=== PATIENT | female | born 1985 | race Caucasian/White ===

== ENCOUNTER 2018-12-01 09:02 | Emergency (ER) | payer OTHER ==
[~2018-12-01] VITALS: Ht 160 cm; Wt 59.0 kg
[~2018-12-01 09:02] MED LIST: CLARITIN5 MG PO; DIPH50 PO; ESCI10 PO; METR500 PO; Multiple Vitam1 EAC1 PO; PERM5TC TOP
[2018-12-01] MEDS ORDERED: HYDR1TAB94 PO (10:43)
[2018-12-01] MEDS ORDERED: IBUP800 PO (10:43)
== END 2018-12-01 10:53 | disposition home or self-care (01) ==
LOC: ER 09:02
DX: S20.212A Contusion of left front wall of thorax, initial encounter (principal); Y04.8XXA Assault by other bodily force, initial encounter; Z88.5 Allergy status to narcotic agent; F17.200 Nicotine dependence, unspecified, uncomplicated
CPT/HCPCS: 71101; 99283-25

== ENCOUNTER 2020-05-25 02:04 | Emergency (ER) | payer OTHER ==
[~2020-05-25] VITALS: Ht 154.9 cm; Wt 54.4 kg
[~2020-05-25 02:04] MED LIST changes: +HYDR1TAB94 PO; +IBUP800 PO
[2020-05-25] MEDS ORDERED: HYDR1TAB94 PO (02:53)
== END 2020-05-25 02:58 | disposition home or self-care (01) ==
LOC: ER 02:04
DX: S62.326A Displaced fracture of shaft of fifth metacarpal bone, right hand, initial encounter for closed fracture (principal); F17.210 Nicotine dependence, cigarettes, uncomplicated; Z23 Encounter for immunization; Z88.5 Allergy status to narcotic agent; W22.8XXA Striking against or struck by other objects, initial encounter
CPT/HCPCS: 29125; 73130; 90471; 99283-25; A9270

== ENCOUNTER 2022-05-04 14:31 | Emergency (ER) | payer OTHER ==
[~2022-05-04] VITALS: Ht 162.6 cm; Wt 49.9 kg
[~2022-05-04 14:31] MED LIST changes: +IBUP400 PO
[2022-05-04] MEDS ORDERED: Norco 5-325 Ta1 EACH PO (17:10)
== END 2022-05-04 18:49 | disposition home or self-care (01) ==
LOC: ER 14:31
DX: S27.0XXA Traumatic pneumothorax, initial encounter (principal); S22.32XA Fracture of one rib, left side, initial encounter for closed fracture; W19.XXXA Unspecified fall, initial encounter; F17.210 Nicotine dependence, cigarettes, uncomplicated; Z88.5 Allergy status to narcotic agent
CPT/HCPCS: 71045

== ENCOUNTER 2022-11-12 00:18 | Observation (INO) | payer OTHER ==
[~2022-11-12] VITALS: Ht 162.6 cm; Wt 55.6 kg
[~2022-11-12 00:18] MED LIST changes: +Norco 5-325 Ta1 EACH PO
[2022-11-12 01:44] LABS: BASOPHILS ABSOLUTE AUTO 0.04 K/mm3 (0.00-0.23); BASOPHILS PERCENT AUTO 0 % (0-2); EOSINOPHILS ABSOLUTE AUTO 0.01 K/mm3 (0.00-0.68); EOSINOPHILS PERCENT AUTO 0 % (0-6); Hematocrit 37.7 % (33.0-51.0); Hemoglobin 13.1 g/dL (11.5-16.0); IMMATURE GRAN ABSOLUTE AUTO 0.21 K/mm3 (0.00-0.10); IMMATURE GRAN PERCENT AUTO 1 % (0-1); LYMPHOCYTES ABSOLUTE AUTO 2.08 K/mm3 (0.84-5.20); LYMPHOCYTES PERCENT AUTO 10 % (21-46); MONOCYTES ABSOLUTE AUTO 2.95 K/mm3 (0.16-1.47); MONOCYTES PERCENT AUTO 14 % (4-13); Mean Corpuscular HGB 30.6 pg (26.0-34.0); Mean Corpuscular HGB Conc 34.7 g/dL (31.5-36.5); Mean Corpuscular Volume 88 fL (80-100); Mean Platelet Volume 9.8 fL (9.1-12.4); NEUTROPHILS ABSOLUTE AUTO 16.53 K/mm3 (1.96-9.15); NEUTROPHILS PERCENT AUTO 76 % (41-73); Platelet Count 296 K/mm3 (150-400); RDW Coefficient Variation 12.1 % (11.7-14.2); RDW Standard Deviation 38.8 fL (35.1-46.3); Red Blood Cell Count 4.28 M/mm3 (3.80-5.20); White Blood Cell Count 21.82 K/mm3 (4.00-11.30)
[2022-11-12 01:53] LABS: Source, Urine Clean Catch
[2022-11-12 01:56] LABS: Bilirubin, Urine Neg (Neg); Blood, Urine 1+ (Neg); Glucose Qualitative, Urine Neg (Neg); Ketones, Urine Neg (Neg); Leukocyte Esterase, Urine 1+ (Neg); Nitrite, Urine Neg (Neg); Protein, Urine Neg (Neg); Specific Gravity, Urine 1.005 (1.003-1.022); Urobilinogen, Urine NORM (Normal)
[2022-11-12 02:01] LABS: Albumin, Blood 2.9 g/dL (3.4-5.0); Albumin/Globulin Ratio 0.7 (0.8-1.8); Bilirubin, Total 0.5 mg/dL (0.1-1.0); Bun/Creatinine Ratio 13.6 (12.0-20.0); Calcium, Blood 8.3 mg/dL (8.5-10.1); Creatinine, Blood 0.59 mg/dL (0.40-1.00); Globulin, Blood 3.9 g/dL (2.2-4.0); Magnesium, Blood 1.9 mg/dL (1.6-2.4); Potassium, Blood 3.2 mmol/L (3.5-5.5); Total Protein, Blood 6.8 g/dL (6.4-8.2)
[2022-11-12 02:04] LABS: Appearance, Urine Clear (Clear); Bacteria Few /hpf; Color, Urine Yellow (P-Yellow); Red Blood Cells, Urine 0-2 /hpf (0-2); Squamous Epithelial Cells Not Seen /hpf (Few)
[2022-11-12 04:58] VITALS: BP 98/60
--- NOTE | 2022-11-12 07:36 | NUR ---
430 ASSUMED CARE OF PT FROM ER, PT C/O MINIMAL PAIN TO ABD RIGHT. BOY FRIEND AT BEDSIDE. PT LAYING COMFORTABLY IN BED. AWAITING FOR NEW ORDERS FROM DOC. IV POTASSIUM ORDERD BUT RATE HAD TO BE DECREASED DO TO PAIN AT IV SITE. CHANGE IN RATE HELPED TO DECREASE PAIN. REPORT GIVEN
[2022-11-12 07:57] VITALS: BP 98/62
[2022-11-12 15:55] VITALS: BP 109/83
--- NOTE | 2022-11-12 18:27 | NUR ---
SHIFT SUMMARY A&OX4, COOPERATIVE WITH CARE. INDEPENDENT. PT EXPERIENCING BODY ACHES/CHILLS AND "ABDOMINAL CRAMPING" T/O SHIFT. MEDICATED WITH FENTANYL Q4 TWICE. PATIENT REFUSED TO FINISH RECEIVING IV POTASSIUM DUE TO BURING AT IV SITE. PATIENT RECEIVED 1L OF 1.5L ORDERED NS FLUIDS THIS SHIFT. LACTIC ACID IS 2.3 AND POTASSIUM 3.2. NO ACUTE CHANGES DURING THIS SHIFT. ASSESSED FOR SOURCES OF IGNITION DURING HOURLY ROUNDING. PATIENT'S SO AND FRIEND CURRENTLY IN THE ROOM WITH HER. CALL LIGHT WITHIN REACH.
[2022-11-12 21:14] VITALS: BP 112/76
[2022-11-13 04:19] VITALS: BP 98/65
--- NOTE | 2022-11-13 04:38 | NUR ---
PT IS A&O4, INDEPENDENT IN THE ROOM WITH BOYFRIEND AT THE BEDSIDE, RA, VSS, PRN PAIN MED GIVEN X1 PER MAR, PT STATES PAIN HAS GOTTEN BETTER', NO ACUTE OVERNIGHT EVENTS, FIRE SAFETY MITIGATION EDUCATION PROVIDED, CONTINUE POC
[2022-11-13 05:04] LABS: BASOPHILS ABSOLUTE AUTO 0.02 K/mm3 (0.00-0.23); BASOPHILS PERCENT AUTO 0 % (0-2); EOSINOPHILS ABSOLUTE AUTO 0.11 K/mm3 (0.00-0.68); EOSINOPHILS PERCENT AUTO 1 % (0-6); Hematocrit 32.2 % (33.0-51.0); Hemoglobin 10.9 g/dL (11.5-16.0); IMMATURE GRAN ABSOLUTE AUTO 0.13 K/mm3 (0.00-0.10); IMMATURE GRAN PERCENT AUTO 1 % (0-1); LYMPHOCYTES ABSOLUTE AUTO 2.32 K/mm3 (0.84-5.20); LYMPHOCYTES PERCENT AUTO 12 % (21-46); MONOCYTES ABSOLUTE AUTO 2.44 K/mm3 (0.16-1.47); MONOCYTES PERCENT AUTO 13 % (4-13); Mean Corpuscular HGB 30.5 pg (26.0-34.0); Mean Corpuscular HGB Conc 33.9 g/dL (31.5-36.5); Mean Corpuscular Volume 90 fL (80-100); Mean Platelet Volume 9.7 fL (9.1-12.4); NEUTROPHILS ABSOLUTE AUTO 13.69 K/mm3 (1.96-9.15); NEUTROPHILS PERCENT AUTO 73 % (41-73); Platelet Count 259 K/mm3 (150-400); RDW Coefficient Variation 12.2 % (11.7-14.2); RDW Standard Deviation 40.7 fL (35.1-46.3); Red Blood Cell Count 3.57 M/mm3 (3.80-5.20); White Blood Cell Count 18.71 K/mm3 (4.00-11.30)
[2022-11-13 05:35] LABS: Bun/Creatinine Ratio 9.4 (12.0-20.0); Calcium, Blood 7.8 mg/dL (8.5-10.1); Creatinine, Blood 0.53 mg/dL (0.40-1.00); Potassium, Blood 3.8 mmol/L (3.5-5.5)
[2022-11-13 07:14] VITALS: BP 95/45
[2022-11-13] MEDS ORDERED: NICO21TP TOP (09:50)
[2022-11-13] MEDS ORDERED: Percocet 5-3251 EACH PO (09:51)
[2022-11-13] MEDS ORDERED: XARELTO20 MG PO (09:52)
[2022-11-13] MEDS ORDERED: LEVFLO500 PO (09:53)
--- NOTE | 2022-11-13 11:27 | NUR ---
DISCHARGE A&OX4, INDEPENDENT. PAIN MANAGED BY PERCOCET. SO AND FRIEND IN ROOM. ASSESSED FOR SOURCES OF IGNITION DURING HOURLY ROUNDING. PATIENT LEFT ROOM MULTIPLE TIMES LAST NIGHT PER REPORT WELL THIS MORNING AND CAME BACK INTO THE ROOM NOTED TO SMELL LIKE CIGARETTES. DISCHARGE PACKET REVIEWED AND EDUCATION PROVIDED ON SMOKING CESSATION. PATIENT LEFT ROOM VIA WHEELCHAIR AT 1115.
[2022-11-19 18:06] LABS: ACT. PRT C RESIST W/FV DEFIC. 2.5 ratio (.); APTT 32.9 sec (.); DRVVT CONFIRM SECONDS 41.9 sec (.); DRVVT RATIO 1.2 ratio (.); FACTOR VIII ACTIVITY 175 % (.); HEXAGONAL PHOSPHOLIPID NEUTRAL 9 sec (.); PRT C ACTIVITY (CHROMOGENIC) 67 % (.)
== END 2022-11-13 11:11 | disposition home or self-care (01) ==
LOC: ER 00:18 → MEDS 00:19 → ENPENDDIS 11-13 08:26 → MEDS 11-13 11:11
PROVIDERS: Internal Medicine; Student in an Organized Health Care Education/Training Program; ADMIT Internal Medicine
DX: N28.0 Ischemia and infarction of kidney (principal); E87.6 Hypokalemia; F17.200 Nicotine dependence, unspecified, uncomplicated; Z88.5 Allergy status to narcotic agent
CPT/HCPCS: 36415; 74177; 76705; 80048; 80053; 81001; 81025; 83605; 83690; 83735; 85025; 87077; 87086; 87186; 93306; 96361-59; 96374-59; 96375; 96375-59; 96376; 99285-25; A9270; G0378; J0696; J1885; J2405; J3010; J3480; J7030; J7050; Q9967

== ENCOUNTER 2023-02-14 17:10 | Emergency (ER) | payer OTHER ==
[~2023-02-14] VITALS: Ht 160 cm; Wt 52.2 kg
[~2023-02-14 17:10] MED LIST changes: +LEVFLO500 PO; +NICO21TP TOP; +Percocet 5-3251 EACH PO; +XARELTO20 MG PO
[2023-02-14 17:35] VITALS: BP 124/88
== END 2023-02-14 19:39 | disposition home or self-care (01) ==
LOC: ER 17:10
DX: S52.611A Displaced fracture of right ulna styloid process, initial encounter for closed fracture (principal); S52.501A Unspecified fracture of the lower end of right radius, initial encounter for closed fracture; W22.8XXA Striking against or struck by other objects, initial encounter; Z88.5 Allergy status to narcotic agent; Z79.899 Other long term (current) drug therapy; F17.210 Nicotine dependence, cigarettes, uncomplicated
CPT/HCPCS: 29105; 73090; 96372-59; 99283-25; J1885

== ENCOUNTER 2024-03-28 17:19 | Emergency (ER) | payer OTHER ==
[~2024-03-28] VITALS: Ht 162.6 cm; Wt 72.6 kg
[2024-03-28] MEDS ORDERED: Ketorolac Tromethamine 30mg Vial IM ONE (22:40)
[2024-03-28] MEDS ORDERED: LORazepam 1 MG Tab PO ONE (22:45)
[2024-03-28] MEDS ORDERED: Trimethoprim/Sulfamethoxazole DS Tab PO SCH (23:20)
[2024-03-29] MEDS ORDERED: SULTRIDS PO (02:01)
[2024-03-29 02:14] VITALS: BP 117/67
[2024-03-29] MEDS ORDERED: Trimethoprim/Sulfamethoxazole DS Tab PO SCH (09:00)
== END 2024-03-29 02:17 | disposition home or self-care (01) ==
LOC: ER 17:19
DX: L02.512 Cutaneous abscess of left hand (principal); L03.012 Cellulitis of left finger; F17.210 Nicotine dependence, cigarettes, uncomplicated; Z88.5 Allergy status to narcotic agent; Z59.89 Other problems related to housing and economic circumstances
CPT/HCPCS: 10060; 73140; 96372-59; 99283-25; A9270; J1885

== ENCOUNTER 2024-11-20 00:03 | Emergency (ER) | payer OTHER ==
[~2024-11-20] VITALS: Ht 160 cm; Wt 59.0 kg
[~2024-11-20 00:03] MED LIST changes: +SULTRIDS PO
[2024-11-20] MEDS ORDERED: NS 1,000 ML IV SCH (00:35)
[2024-11-20 00:53] LABS: BASOPHILS ABSOLUTE AUTO 0.04 K/mm3 (0.00-0.23); BASOPHILS PERCENT AUTO 0 % (0-2); EOSINOPHILS ABSOLUTE AUTO 0.04 K/mm3 (0.00-0.68); EOSINOPHILS PERCENT AUTO 0 % (0-6); Hematocrit 43.2 % (33.0-51.0); Hemoglobin 14.0 g/dL (11.5-16.0); IMMATURE GRAN ABSOLUTE AUTO 0.02 K/mm3 (0.00-0.10); IMMATURE GRAN PERCENT AUTO 0 % (0-1); LYMPHOCYTES ABSOLUTE AUTO 2.63 K/mm3 (0.84-5.20); LYMPHOCYTES PERCENT AUTO 28 % (21-46); MONOCYTES ABSOLUTE AUTO 0.52 K/mm3 (0.16-1.47); MONOCYTES PERCENT AUTO 5 % (4-13); Mean Corpuscular HGB Conc 32.4 g/dL (31.5-36.5); Mean Corpuscular Volume 91 fL (80-100); NEUTROPHILS ABSOLUTE AUTO 6.31 K/mm3 (1.96-9.15); NEUTROPHILS PERCENT AUTO 66 % (41-73); NRBC ABSOLUTE 0.00 K/mm3 (0.00-0.02); NRBC Auto 0.0 /100 WBC (0.0-0.2); Platelet Count 352 K/mm3 (150-400); RDW Coefficient Variation 12.3 % (11.7-14.2); RDW Standard Deviation 41.2 fL (35.1-46.3)
[2024-11-20 00:56] LABS: pH Blood Venous 7.41 (7.34-7.37)
[2024-11-20 01:07] LABS: Ethanol (Alcohol), Blood, Med 202 mg/dL; Salicylate 2.2 mg/dL (2.8-20.0)
[2024-11-20 01:09] LABS: Acetaminophen, Random <2.0 ug/mL (10.0-30.0); Alanine Aminotransfer (ALT/SGP 23 U/L (12-78); Albumin, Blood 3.6 g/dL (3.4-5.0); Albumin/Globulin Ratio 0.9 (0.8-1.8); Anion Gap 11 mmol/L (3-11); Aspartate Aminotrans (AST/SGOT 23 U/L (12-37); Bilirubin, Total 0.6 mg/dL (0.1-1.0); Blood Urea Nitrogen 10 mg/dL (8-24); CO2, Blood 22 mmol/L (21-32); Calcium, Blood 8.6 mg/dL (8.5-10.1); Chloride, Blood 109 mmol/L (98-108); Creatinine, Blood 0.79 mg/dL (0.40-1.00); Globulin, Blood 4.0 g/dL (2.2-4.0); Glucose, Blood 90 mg/dL (70-99); Potassium, Blood 3.5 mmol/L (3.5-5.5); Sodium, Blood 138 mmol/L (136-145); Total Protein, Blood 7.6 g/dL (6.4-8.2)
[2024-11-20 04:37] LABS: U Amphetamine Screen DETECTED; U Barbituate Screen Not Detected; U Benzodiazapine Screen Not Detected; U Buprenorphine Screen Not Detected; U Cannabinoids Screen DETECTED; U Cocaine Screen Not Detected; U Methadone Screen Not Detected; U Methamphetamine Screen DETECTED; U Opiates Screen Not Detected; U Oxycodone Screen Not Detected; U Phencyclidine Screen Not Detected
[2024-11-20 05:57] VITALS: BP 96/66
== END 2024-11-20 06:00 | disposition home or self-care (01) ==
LOC: ER 00:03
PROVIDERS: Emergency Medicine
DX: F15.10 Other stimulant abuse, uncomplicated (principal); F14.10 Cocaine abuse, uncomplicated; E87.20 Acidosis, unspecified; F17.210 Nicotine dependence, cigarettes, uncomplicated; Z88.5 Allergy status to narcotic agent
CPT/HCPCS: 71045; 80053; 80320; 82803; 83605; 84703; 85025; 93005; 93010; 99284-25; G0480; J7030